=== PATIENT | female | born 1990 | race African-American/Black ===

== ENCOUNTER 2017-11-06 21:28 | Emergency (ER) | payer OTHER ==
[~2017-11-06] VITALS: Ht 172.7 cm; Wt 88.5 kg
--- NOTE | 2017-11-06 22:13 | NUR ---
Patient discharged to home in stable conditon. Written and verbal after care instructions given. Patient verbalizes understanding of instructions.
== END 2017-11-06 22:14 | disposition home or self-care (01) ==
LOC: ER 21:31
DX: S62.612A Displaced fracture of proximal phalanx of right middle finger, initial encounter for closed fracture (principal); X58.XXXA Exposure to other specified factors, initial encounter; Y93.89 Activity, other specified; Y92.89 Other specified places as the place of occurrence of the external cause; Y99.8 Other external cause status
CPT/HCPCS: 73130; A4663

== ENCOUNTER 2017-11-25 13:41 | Emergency (ER) | payer OTHER ==
[~2017-11-25] VITALS: Ht 172.7 cm; Wt 89.8 kg
--- NOTE | 2017-11-25 18:20 | NUR ---
DR MARTINEZ SPOKE WITH PATIENT WILL BE DC HOME WITH FOLLOW UP.
[2017-11-25 18:35] VITALS: BP 105/70
--- NOTE | 2017-11-25 18:35 | NUR ---
Patient discharged to home in stable conditon. Written and verbal after care instructions given. Patient verbalizes understanding of instructions.
== END 2017-11-25 18:37 | disposition home or self-care (01) ==
LOC: ER 13:41
DX: S62.612A Displaced fracture of proximal phalanx of right middle finger, initial encounter for closed fracture (principal); X58.XXXA Exposure to other specified factors, initial encounter; Y93.89 Activity, other specified; Y92.89 Other specified places as the place of occurrence of the external cause; Y99.8 Other external cause status
CPT/HCPCS: 73120; A4663